=== PATIENT | female | born 1975 | race Caucasian/White ===

== ENCOUNTER → 2017-10-26 | Outpatient (CLI) | END | disposition home or self-care (01) ==

== ENCOUNTER 2018-01-07 21:08 | Emergency (ER) | END 2018-01-08 00:15 | disposition home or self-care (01) ==

== ENCOUNTER → 2018-01-28 | Outpatient (CLI) | END | disposition home or self-care (01) ==

== ENCOUNTER → 2018-03-29 | Outpatient (CLI) | END | disposition home or self-care (01) ==

== ENCOUNTER → 2018-05-12 | Outpatient (CLI) | END | disposition home or self-care (01) ==

== ENCOUNTER 2018-06-22 03:04 | Inpatient (IN) | END 2018-06-23 22:45 | disposition home or self-care (01) | DRG 833 ==

== ENCOUNTER 2018-07-22 05:58 | Inpatient (IN) | END 2018-07-25 16:45 | disposition home or self-care (01) | DRG 785 ==

== ENCOUNTER → 2019-05-01 | Outpatient (CLI) | payer BC ==
[~2019-05-01] MED LIST: ACET500C5 PO
== END | disposition home or self-care (01) ==
LOC: LAB 03:54
PROVIDERS: ATTEND Internal Medicine
DX: E55.9 Vitamin D deficiency, unspecified (principal); R73.03 Prediabetes; E03.9 Hypothyroidism, unspecified; E78.5 Hyperlipidemia, unspecified
CPT/HCPCS: 80053; 80061; 82306; 83036; 84436; 84443; 85025